=== PATIENT | female | born 1990 | race African-American/Black ===

== ENCOUNTER 2017-07-09 10:51 | Emergency (ER) | payer OTHER ==
[~2017-07-09] VITALS: Ht 167.6 cm; Wt 61.2 kg
--- NOTE | 2017-07-09 10:51 | NUR ---
C/O NAUSEA AND VOMITING, ALSO ETOH 2AM . PLACED ON MONITOR. AWAITING MD ORDER
[2017-07-09] MEDS ORDERED: ONDANSETRON 4 MG TAB.RAPDIS ONE (11:27)
[2017-07-09] MEDS ORDERED: ONDANSETRON 4 MG TAB.RAPDIS SL ONE (11:30)
[2017-07-09] MEDS ORDERED: PROMETHAZINE HCL 25 MG/ML AMPUL ONE (12:27)
[2017-07-09] MEDS ORDERED: PROMETHAZINE HCL 50 MG/ML AMPUL IM ONE (12:30)
[2017-07-09] MEDS ORDERED: METOCLOPRAMIDE HCL 10 MG/2 ML VIAL IV ONE (13:00)
[2017-07-09] MEDS ORDERED: FAMOTIDINE/PF INJ 20 MG/2 ML VIAL IV ONE ×2 (13:00→13:02)
[2017-07-09] MEDS ORDERED: IV NS 0.9% 1,000 ML BAG IV ONE (13:00)
[2017-07-09] MEDS ORDERED: METOCLOPRAMIDE HCL 10 MG/2 ML VIAL ONE (13:02)
--- NOTE | 2017-07-09 13:54 | NUR ---
IV removed. Catheter intact and site benign. Pressure and 4x4 applied to site. No bleeding noted.
--- NOTE | 2017-07-09 13:54 | NUR ---
Patient discharged to home in stable condition. Written and verbal after care instructions given. Patient verbalizes understanding of instruction.
[2017-07-09 13:55] VITALS: BP 124/43
== END 2017-07-09 13:55 | disposition home or self-care (01) ==
LOC: ER 10:54
DX: R11.2 Nausea with vomiting, unspecified (principal); F10.10 Alcohol abuse, uncomplicated
CPT/HCPCS: 84703; 96361; 96372; 96374; 96375; 99284; A4606; J2550; J2765; J3490; Q0162; Z7610; J7030